=== PATIENT | female | born 1985 | race Caucasian/White ===

== ENCOUNTER 2016-10-26 00:22 | Inpatient (IN) | payer MEDICAID ==
[~2016-10-26] VITALS: Ht 152.4 cm; Wt 81.8 kg
[2016-10-26 00:37] VITALS: Ht 152.4 cm; Wt 81.8 kg
[2016-10-26] MEDS ORDERED: PREN1TAB79 PO (00:37)
[2016-10-26 00:38] VITALS: BP 118/75; PULSE 62; RESP 18
[2016-10-26] MEDS ORDERED: LACTATED RINGER'S 1,000 ML IV SCH (01:07)
[2016-10-26] MEDS ORDERED: CEFAZOLIN 2 GM/50 ML (PMX) 50 ML IV SCH (01:30)
[2016-10-26] MEDS ORDERED: LACTATED RINGER'S 1,000 ML IV ONE ×2 (01:30→02:48)
[2016-10-26] MEDS ORDERED: METHYLERGONOVINE 0.2 MG INJ IM PRN ×2 (01:30→09:00)
[2016-10-26] MEDS ORDERED: OXYTOCIN 30 UNITS/LR 500 ML IV SCH (01:30)
[2016-10-26] MEDS ORDERED: CARBOPROST 250 MCG INJ IM PRN ×2 (01:30→09:00)
[2016-10-26] MEDS ORDERED: MISOPROSTOL 200 MCG TAB PR PRN ×2 (01:30→09:00)
[2016-10-26] MEDS ORDERED: OXYTOCIN 30 UNITS/LR 500 ML IV PRN ×2 (01:30→09:00)
[2016-10-26 01:54] LABS: ADD SCAN DIFF NO
[2016-10-26 02:01] LABS: BASOPHIL # 0.1 10^3/ul (0.0-0.1); BASOPHILS % 0.5 % (0.0-2.0); EOSINOPHILS # 0.8 10^3/ul (0.0-0.5); EOSINOPHILS % 7.6 % (0.0-7.0); HEMATOCRIT 36.8 % (37.0-47.0); HEMOGLOBIN 11.9 g/dl (12.0-16.0); LYMPHOCYTES # 2.7 10^3/ul (0.8-2.9); LYMPHOCYTES % 26.3 % (15.0-51.0); MEAN CORPUSCULAR HEMOGLOBIN 26.4 pg (29.0-33.0); MEAN CORPUSCULAR HGB CONC 32.3 g/dl (32.0-37.0); MEAN CORPUSCULAR VOLUME 81.8 fl (82.0-101.0); MEAN PLATELET VOLUME 11.7 fl (7.4-10.4); MONOCYTE # 0.7 10^3/ul (0.3-0.9); MONOCYTES % 6.5 % (0.0-11.0); NEUTROPHIL # 6.1 10^3/ul (1.6-7.5); NEUTROPHILS % 58.7 % (39.0-77.0); PLATELET COUNT 314 10^3/UL (140-415); RED CELL DISTRIBUTION WIDTH 14.9 % (11.5-14.5); WHITE BLOOD COUNT 10.4 10^3/ul (4.8-10.8)
[2016-10-26 02:17] LABS: INR 0.89; PT RATIO 0.9
[2016-10-26 02:18] LABS: PARTIAL THROMBOPLASTIN TIME 26.5 Sec (25.0-35.0)
[2016-10-26] MEDS ORDERED: ONDANSETRON 4 MG INJ ONE (02:38)
[2016-10-26] MEDS ORDERED: ONDANSETRON 4 MG INJ IV STA (02:38)
[2016-10-26] MEDS ORDERED: CITRIC ACID/NA CITRATE 30 ML CUP ONE (02:39)
[2016-10-26] MEDS ORDERED: CITRIC ACID/NA CITRATE 30 ML CUP PO ONE ×2 (02:40→03:00)
[2016-10-26] MEDS ORDERED: ONDANSETRON 4 MG INJ IV ONE (03:00)
--- NOTE | 2016-10-26 03:05 | TRIAGE ---
OB Triage Datetime Report Generated by CPN: 10/26/2016 03:05 Datetime: 10/26/2016 02:15 Stage of : Labor Maternal Assessment Level of Consciousness: Fully Conscious DTR's/Clonus: DTRs 2+ Headache: Denies Blurred Vision: No Breath Sounds, Left: Clear and Equal Breath Sounds, Right: Clear and Equal Nausea/Vomiting: Denies RUQ Epigastric Pain: Denies Labor Evaluation Frequency: 5-6 Monitor Mode: External Duration (sec)2399: 50 Quality: Mild Pattern: Normal: <= 5 Contractions in 10 Minutes Resting Tone [place] Comfort: Relaxed Heart Rate FHR Baseline Rate: 140 Monitor Mode: External US FHR Baseline Changes: No Baseline Change Variability: Moderate 6-25 bpm Accelerations: 15X15 Decelerations: None Category: Category I Pain Assessment Pain Scale: 7 Pain Presence: Intermittent Pain Type: Dull; Contraction; Ache Pain Location: Abdomen Pain Goal: 2 Pain Relief Measures: Comfort Measures Membrane Status: Ruptured Membranes Rupture Method: Spontaneous Amniotic Fluid Color: Light Meconium Amniotic Fluid Amount: Small Amniotic Fluid Odor: None Datetime: 10/26/2016 01:57 Assessment Type: Admission Assessment Vaginal Bleeding: None Maternal Assessment Level of Consciousness: Fully Conscious DTR's/Clonus: DTRs 2+; No Clonus Headache: Denies Blurred Vision: No Respiratory Effort: Unlabored; Regular Rhythm; Equal Expansion Breath Sounds, Left: Clear and Equal Breath Sounds, Right: Clear and Equal Nausea/Vomiting: Denies RUQ Epigastric Pain: Denies Facial Edema: None Fall Risk Assessment History of Falling: (0) No Secondary Diagnosis: (0) No Ambulatory Aid: (0) Bedrest/Nurse Assist Gait: (0) Normal/Bedrest/Immobile Mental Status: (0) Oriented to Own Ability Labor Evaluation Frequency: 5-6 Duration (sec)2399: 50-55 Quality: Moderate Pattern: Normal: <= 5 Contractions in 10 Minutes Resting Tone [place] Comfort: Relaxed Heart Rate FHR Baseline Rate: 145 Variability: Moderate 6-25 bpm Accelerations: 15X15 Category: Category I Pain Assessment Pain Scale: 7 Pain Presence: Intermittent Pain Type: Cramping; Dull; Contraction Pain Goal: 2 Vaginal Exam Dilatation (cms): 0.0 Effacement (%): 0 Station: -3 Membrane Status: Intact Membranes Ruptured Date/Time: 10/25/2016 22:30 Membranes Rupture Method: Spontaneous Amniotic Fluid Color: Light Meconium Amniotic Fluid Amount: Small Amniotic Fluid Odor: None Datetime: 10/26/2016 01:00 Stage of : OB Triage Labor Evaluation Frequency: Irregular Monitor Mode: External Duration (sec)2399: 50-80 Quality: Moderate Pattern: Normal: <= 5 Contractions in 10 Minutes Resting Tone [place] Comfort: Relaxed Heart Rate FHR Baseline Rate: 145 Monitor Mode: External US Variability: Moderate 6-25 bpm Accelerations: 15X15 Decelerations: None Category: Category I Datetime: 10/26/2016 00:42 Vaginal Exam Dilatation (cms): 0.0 Effacement (%): 50 Station: -3 Exam By: FAUSTO Waite Vaginal Bleeding: None Cervix, Consistency: Firm Cervix, Position: Posterior Datetime: 10/26/2016 00:34 Stage of : OB Triage Assessment Type: Triage Maternal Assessment Level of Consciousness: Fully Conscious DTR's/Clonus: DTRs 2+; No Clonus Headache: Denies Blurred Vision: No Respiratory Effort: Unlabored; Regular Rhythm; Equal Expansion Breath Sounds, Left: Clear and Equal Breath Sounds, Right: Clear and Equal Nausea/Vomiting: Denies RUQ Epigastric Pain: Denies Lower Extremities Edema: None Degree: None Upper Extremities Edema: None Degree: None Facial Edema: None Temperature Route: Oral Fall Risk Assessment History of Falling: (0) No Secondary Diagnosis: (0) No Ambulatory Aid: (0) Bedrest/Nurse Assist IV Therapy: (0) No Gait: (0) Normal/Bedrest/Immobile Mental Status: (0) Oriented to Own Ability Fall Score: 0 Fall Risk Score Definition: No Risk: No action required Pain Assessment Pain Scale: 7 Pain Presence: Intermittent Pain Type: Cramping; Contraction Pain Location: Abdomen; Back Pain Relief Measures: Comfort Measures Datetime: 10/26/2016 00:32 Monitor Mode: External Contraction Comments: Rocky Comfort applied Heart Rate FHR Baseline Rate: 150 Monitor Mode: External US Comments: EFM applied Datetime: 10/26/2016 00:28 Time of Arrival: 10/26/2016 00:10 EGA: 38.6 Arrived By: Wheelchair Arrived From: Home Chief Complaint: UCs Movement: Present Contractions: Regular Time Contractions Began: 10/26/2016 21:00 Contractions: [id number] Rupture of Membranes: Ruptured Vaginal Bleeding: None Vaginal Discharge: Present Abdominal Trauma: Not Applicable Patient Complaints: Contractions; Cramping; Back Pain Time Provider Notified: 10/26/2016 01:00 Provider Notified: Initial Plan: EFChantel x2, VE
[2016-10-26] MEDS ORDERED: morphine SULFATE/PF (10 MG/10 ML) INJ ONE (03:50)
[2016-10-26] MEDS ORDERED: FENTAnyl 50 MCG/ML VIAL ONE (03:50)
--- NOTE | 2016-10-26 04:01 | HP ---
Date/Time of Note Date/Time of Note DATE: 10/26/16 TIME: 03:46 OB - History Hx of Present Free Text/Dictation 30 y.o [id number] in labor with x2 previous section here for repeat secion and tubal serilization which she consented on sep she was initially scheduled on 10/2016 but came in after start leaking [id number] 10/25/16 and uterine conactions every 10 mins prepare for repeat cesaean sections and tubal sterilization. Estimated Due Date: Nov 03, 2016 : 4 Para: 2 Spontaneous : 1 Therapeutic : 0 Care: Limited Care Ultrasounds: No ultrasounds Obstetrical Complications: None Medical Complications: None Past Family/Social History * Past Medical, Surgical, Family and Obstetric Histories reviewed from chart. Blood Type: O+ Rubella: immune RPR/VDRL: Negative GBS Status: Negative HBsAG: Negative OB Admission Exam Vital Signs Vital Signs Vital Signs Date Time Temp Pulse Resp B/P Pulse Ox O2 Delivery O2 Flow Rate FiO2 10/26/16 00:38 97.4 62 18 118/75 Room Air Physical Exam HEENT: WNL Heart: Rhythm Normal Lungs: Clear, Equal Abdomen: WNL Extremities: Normal Reflexes: Normal Cervical Dilatation: None Effacement: 100% Station: -3 Membranes: Ruptured Amniotic Fluid: Other (brown) Heart Rate: 140's Accelerations: Accelerations Present Decelerations: No Decelerations Varibility: Moderate Contractions on Admission: 6-10 Minutes Apart Intensity: Mild Last 72 hours Lab Results CBC & BMP 10/26/16 01:25 OB Assessment/Plan Reason for admission: other Plan: Section, Other (bilateral tubal sterilization) ISABELL ACUNA MD Oct 26, 2016 03:57
[2016-10-26] MEDS ORDERED: OXYTOCIN 30 UNITS/LR 500 ML IV ONE (04:13)
[2016-10-26] MEDS ORDERED: METOCLOPRAMIDE 10 MG INJ ONE (04:19)
[2016-10-26] MEDS ORDERED: MEPERIDINE 25 MG INJ IV PRN (06:00)
[2016-10-26] MEDS ORDERED: morphine 2 MG INJ IV PRN ×2 (06:00)
[2016-10-26] MEDS ORDERED: NALOXONE (0.4 MG/ML) INJ IV PRN (06:00)
[2016-10-26] MEDS ORDERED: KETOROLAC 30 MG INJ IV ONE (06:00)
[2016-10-26] MEDS ORDERED: PROCHLORPERAZINE 10 MG INJ IV PRN (06:00)
[2016-10-26] MEDS ORDERED: ONDANSETRON 4 MG INJ IV PRN ×2 (06:00→09:00)
[2016-10-26] MEDS ORDERED: DIPHENHYDRAMINE 50 MG INJ IV PRN ×3 (06:00→09:00)
--- NOTE | 2016-10-26 07:45 | OPR ---
DATE OF OPERATION: 10/26/2016 PREOPERATIVE DIAGNOSIS: , 38 weeks 6 days, with ruptured membrane in labor with 2 previous C-sections and multiparity for tubal sterilization. POSTOPERATIVE DIAGNOSIS: , 38 weeks 6 days, with ruptured membrane in labor with 2 previou s C-sections and multiparity for tubal sterilization, delivered normal . OPERATION PERFORMED: Repeat low transverse section and bilateral partial salpingectomy. ANESTHESIA: Spinal. ANESTHESIOLOGIST: Ana Maria Caceres MD SURGEON: Dick Palencia MD VELVET WEAVER: Amber Nelson MD ESTIMATED BLOOD LOSS: Approximately 500 mL. SPONGE COUNT: Correct. PROCEDURE: Under proper induction of spinal anesthesia, the patient was placed in frog position. F oley catheter was introduced into the bladder under sterile condition, repositioned to supine. Abdo rosita wall was prepped and draped in usual aseptic manner. A transverse incision was made under pre vious incisional scar transversely. The incision carried down through the subcutaneous tissue to th e anterior recti fascia which was incised transversely in length of the incision. Fascial flap was created by blunt and sharp dissection of tendinous attachment, and the peritoneal cavity was entered . Low portion of the uterus was extremely thin. Incision was made above that area and carried down to reach the membrane. Ruptured, clear amniotic fluid, and normal was born from the left oc ciput transverse position. Mouth and nose were cleaned, and cord was clamped which was delayed. Th e infant was handed to the respiratory care personnel for further care. Cord blood was obtained. P lacenta was removed manually. Cavity was completely explored after uterus was exteriorized. Incisi on was closed using #1 chromic catgut on the first layer and second layer using 0 chromic catgut. T he serosa was closed together. No bleeder was noted. The left fallopian tube was grasped with Babc ock forceps in avascular area in the mesosalpinx, created loop of tube. This loop of tube was doubl y ligated. Loop of tube was excised. The tubal lumen was cauterized. No bleeder noted. The same procedure was done on the right fallopian tube, created loop of tube on the avascular area in the me sosalpinx. This was doubly ligated with 0 plain, and loop of tube was excised. Tubal lumen was cau terized. No bleeder was noted. After all the blood out from the gutter and the uterus was relocate d into the abdominal cavity, the incisional site was rechecked, and a piece of Surgicel was laid on the uterine incision. Sponge count was taken which was correct. The parietal peritoneum was closed using 0 chromic catgut in continuous manner. Muscle closed with 0 chromic catgut continuous manner . Fascia closed with #1 Vicryl continuous manner in 2 segments. Subcutaneous tissue was irrigated with water. This layer was approximated with 2-0 plain in continuous manner after adequate hemostas is secured. Skin closed with 3-0 Monocryl in subcuticular manner. Pressure dressing applied. Umm mated blood loss approximately 500 mL. The patient withstood the procedure well and was sent to the recovery room in stable condition. Dictated By: DICK LOFTON/ANAID Conf#: [id number] DID#: [id number]
[2016-10-26 08:20] VITALS: BP 114/65; PULSE 65; RESP 16
[2016-10-26] MEDS ORDERED: OXYCODONE/ACETAMINOPHEN (5/325) TAB PO PRN (09:00)
[2016-10-26] MEDS ORDERED: LANOLIN 7 GM TUBE TOP PRN (09:00)
[2016-10-26] MEDS ORDERED: ZOLPIDEM 5 MG TAB PO PRN (09:00)
[2016-10-26] MEDS: SENNA/DOCUSATE NA (8.6MG/50MG) TAB PO SCH ×2 (09:07→21:01)
[2016-10-26 11:53] VITALS: BP 107/67; PULSE 62; RESP 19
[2016-10-26] MEDS: KETOROLAC 30 MG INJ IV PRN (13:08)
[2016-10-26 16:06] VITALS: BP 110/65; PULSE 60; RESP 18
[2016-10-26] MEDS: LACTATED RINGER'S 1,000 ML IV SCH ×2 (16:23→19:30)
--- NOTE | 2016-10-26 17:58 | PREOPHP ---
DATE OF ADMISSION: 10/26/2016 This patient is to be admitted tomorrow, 10/27/2016, for repeat and tubal ligation. HISTORY OF PRESENT ILLNESS: This is a 30-year-old female, 3, para 2, who had 2 previous sections and her EDC reconfirmed by early and serial ultrasounds done by the [facility] to be 11/03/2016. She is admitted for repeat and per her request a tubal ligation at the same time. Both procedures were carefully explained in detail in the office. The alternatives, the benefits, the risks, and possible complications, including a 1 % failure rate of tubal ligation. She was allowed to ask questions and all her questions were answered to her satisfaction, and she signed the appropriate surgical informed consent. A course has been totally uncomplicated and was started on September 29 at 34 weeks gestation and 2 days. PAST MEDICAL HISTORY: Entirely negative. There is no history of hypertension, cardiovascular disease, diabetes, renal disease, liver disease, thyroid disease , or neurological problems. ALLERGIES: NO KNOWN ALLERGIES. MEDICATIONS: Takes only vitamins on a regular basis. OBSTETRICAL HISTORY: The patient delivered her first child by section at [facility] on 02/14/2009. Second baby was delivered at [facility] in February 28, 2014 by repeat section. FAMILY HISTORY: Noncontributory. REVIEW OF SYSTEMS: A 12-point review of systems is noncontributory. PHYSICAL EXAMINATION: GENERAL: Well-developed and nourished with a height of 5 feet 2 inches, weight of 179 pounds. VITAL SIGNS: Showed temperature to be 98, blood pressure is 100/64, respirations 16 per minute, the pulse is 72 per minute, regular. HEENT: Within normal limits. Pupils are PERRLA. NECK: Supple. Thyroid is not palpable. There is no lymphadenopathy. BREASTS: Show no masses or lumps. LUNGS: Clear to percussion and auscultation. HEART: Revealed normal sinus rhythm without a murmur. ABDOMEN: Soft. Uterus enlarged up to 36 cm above the pubic bone, single baby, longitudinal lie, cephalic presentation. heart tone reported per Doppler. PELVIC: Normal external genitalia. Cervix is normal, closed, long. Membranes are intact. EXTREMITIES: Within normal limits. NEUROLOGIC: Also normal. IMPRESSION: 1. 39 weeks' gestation. 2. Previous section x2. PLAN: Repeat .The patient desires sterilization. Dictated By: RIAZ BAE/ANAID Conf#: [id number] DID#: [id number] CC: BRIDGET BUSTAMANTE MD;*EndCC* MTDD
[2016-10-26 20:00] VITALS: BP 99/61; PULSE 64; RESP 20
[2016-10-27] MEDS: LACTATED RINGER'S 1,000 ML IV SCH ×3 (00:10→14:00)
[2016-10-27 00:50] VITALS: BP 109/72; PULSE 76; RESP 20
[2016-10-27 04:15] VITALS: BP 107/69; PULSE 77; RESP 18
[2016-10-27] MEDS: KETOROLAC 30 MG INJ IV PRN (04:21)
[2016-10-27] MEDS: IBUPROFEN 600 MG TAB PO SCH ×5 (06:00→23:40)
[2016-10-27 07:30] VITALS: BP 100/61; PULSE 77; RESP 19
[2016-10-27 08:15] LABS: ADD SCAN DIFF NO
[2016-10-27 08:19] LABS: BASOPHILS % 0.3 % (0.0-2.0); EOSINOPHILS # 0.6 10^3/ul (0.0-0.5); EOSINOPHILS % 6.4 % (0.0-7.0); HEMATOCRIT 34.3 % (37.0-47.0); HEMOGLOBIN 10.9 g/dl (12.0-16.0); LYMPHOCYTES # 1.7 10^3/ul (0.8-2.9); LYMPHOCYTES % 17.3 % (15.0-51.0); MEAN CORPUSCULAR HEMOGLOBIN 26.3 pg (29.0-33.0); MEAN CORPUSCULAR HGB CONC 31.8 g/dl (32.0-37.0); MEAN CORPUSCULAR VOLUME 82.7 fl (82.0-101.0); MEAN PLATELET VOLUME 11.5 fl (7.4-10.4); MONOCYTE # 0.5 10^3/ul (0.3-0.9); MONOCYTES % 5.2 % (0.0-11.0); NEUTROPHIL # 7.1 10^3/ul (1.6-7.5); NEUTROPHILS % 70.5 % (39.0-77.0); PLATELET COUNT 257 10^3/UL (140-415); RED BLOOD COUNT 4.15 10^6/ul (4.20-5.40); RED CELL DISTRIBUTION WIDTH 15.4 % (11.5-14.5)
--- NOTE | 2016-10-27 09:01 | PN ---
Date/Time of Note Date/Time of Note DATE: 10/27/16 TIME: 08:56 OB Subjective Subjective Subjective Doing well,tolerates PO feeding well.Passes gases. OB Objective Objective Objective Afebrile. Abdomen soft,dressing intact. HEENT: WNL Heart: Rhythm Normal Lungs: Clear Abdomen: WNL Extremities: Normal Reflexes: Normal RIAZ JULIAN MD Oct 27, 2016 09:01
[2016-10-27] MEDS: SENNA/DOCUSATE NA (8.6MG/50MG) TAB PO SCH ×2 (10:41→21:25)
[2016-10-27 11:33] VITALS: BP 105/61; PULSE 75; RESP 18
[2016-10-27] MEDS: OXYCODONE/ACETAMINOPHEN (5/325) TAB PO PRN ×2 (15:51→21:32)
[2016-10-27 16:00] VITALS: BP 111/64; PULSE 78; RESP 19
[2016-10-27 20:00] VITALS: BP 97/69; PULSE 80; RESP 18
[2016-10-28 04:00] VITALS: BP 107/69; PULSE 70; RESP 20
[2016-10-28] MEDS: IBUPROFEN 600 MG TAB PO SCH ×4 (06:47→23:47)
[2016-10-28 08:35] VITALS: BP 118/75; PULSE 72; RESP 18
[2016-10-28] MEDS: SENNA/DOCUSATE NA (8.6MG/50MG) TAB PO SCH ×2 (08:48→20:34)
--- NOTE | 2016-10-28 14:28 | PN ---
Date/Time of Note Date/Time of Note DATE: 10/28/16 TIME: 14:26 OB Subjective Subjective Subjective PASSING FLATUS NO B.M OB Objective Objective Objective VSS AFEBRILE ABDOMEN SOFT WOUND DRY LOCHIA MIN CALF NEG FOR TENDERNESS OB Assessment/Plan Other Assessment: STABLE POST REPEAT C-S AND BTL Other plan: D/S HOME IN AM ISABELL ACUNA MD Oct 28, 2016 14:28
[2016-10-28 16:21] VITALS: BP 128/75; PULSE 67; RESP 18
[2016-10-28 20:00] VITALS: BP 113/69; PULSE 69; RESP 18
[2016-10-29 04:00] VITALS: BP 114/65; PULSE 84; RESP 18
[2016-10-29] MEDS: IBUPROFEN 600 MG TAB PO SCH ×3 (06:21→17:35)
[2016-10-29 08:25] VITALS: BP 126/67; PULSE 76; RESP 18
--- NOTE | 2016-10-29 08:46 | PD.PPDC ---
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
[2016-10-29] MEDS: SENNA/DOCUSATE NA (8.6MG/50MG) TAB PO SCH (08:58)
[2016-10-29] MEDS ORDERED: DIPHTH/TET/ACEL PERTUSS (ADULT) 0.5 ML VIAL IM* ONE (09:00)
--- NOTE | 2016-10-29 09:47 | DS ---
DATE OF ADMISSION: 10/26/2016 DATE OF DISCHARGE: 10/29/2016 FINAL DIAGNOSES: 1. Term intrauterine . 2. Previous x2. 3. Multiparity. SUMMARY: This is a 30-year-old female, 3, para 2, who came in, in active labor to labor and delivery. She had been scheduled for repeat at term. However, she presented in active l abor. She was operated on by Dr. Dick Acuna who had a repeat section and a tubal ligation . Postoperatively, the patient and baby both have done very well. Today, she desires to go home. She is tolerating p.o. feeding well. The incision is healing well. There are no signs of infection . She is given a prescription for Percocet to use 1 or 2 every 6 hours p.r.n. pain and milk of magn esia to help her bowel movements. She is on a regular diet. She is discharged in good condition, t o follow up visit in 1 week. Dictated By: RIAZ BAE/NTS Conf#: [id number] DID#: [id number] CC: DICK ACUNA MD;*EndCC*
[2016-10-29] MEDS: OXYCODONE/ACETAMINOPHEN (5/325) TAB PO PRN (15:43)
[2016-10-29 16:00] VITALS: BP 116/65; PULSE 78; RESP 18
== END 2016-10-29 17:57 | disposition home or self-care (01) | DRG 766 ==
LOC: OBT 00:22 → L-D 00:23 → OBT 01:17 → L-D 01:18 → PP1 08:36
PROVIDERS: ADMIT Specialist; ATTEND Specialist
PROC: 0UB70ZZ Excision of Bilateral Fallopian Tubes, Open Approach (ICD-10-PCS; 2016-10-26)
PROC: 10D00Z1 Extraction of Products of Conception, Low, Open Approach (ICD-10-PCS; principal; 2016-10-26 04:30)
DX: O34.211 Maternal care for low transverse scar from previous cesarean delivery (principal); Z30.2 Encounter for sterilization; Z3A.38 38 weeks gestation of pregnancy; Z37.0 Single live birth
CPT/HCPCS: 36415; 85025; 85610; 85730; 86592; 87340; 88302; 90715; 96360; 99464; G0463; J0690; J1885; J2210; J2274; J2405; J2590; J2765; J3010; J7120

== ENCOUNTER 2018-08-02 09:52 | Emergency (ER) | END 2018-08-02 13:37 | disposition home or self-care (01) ==